=== PATIENT | female | born 1960 | race Caucasian/White ===

== ENCOUNTER 2017-09-29 18:21 | Emergency (ER) | payer OTHER | END 2017-09-29 20:05 | disposition home or self-care (01) | LOC: D.ER 18:21 | DX: R51 Headache (principal); J45.909 Unspecified asthma, uncomplicated; J44.9 Chronic obstructive pulmonary disease, unspecified; K21.9 Gastro-esophageal reflux disease without esophagitis ==

== ENCOUNTER 2018-05-10 10:23 | Emergency (ER) | payer OTHER ==
[~2018-05-10] VITALS: Ht 165.1 cm; Wt 86.4 kg
[2018-05-10 10:46] VITALS: Ht 165.1 cm; Wt 86.4 kg
[2018-05-10] MEDS ORDERED: ZESTORETIC 10/11 TAB PO (10:47)
[2018-05-10] MEDS ORDERED: ANTIVERT12.5 MG PO (12:05)
[2018-05-10] MEDS ORDERED: ATIVAN1 MG PO (12:05)
[2018-05-10 12:32] VITALS: BP 137/81
== END 2018-05-10 12:35 | disposition home or self-care (01) ==
LOC: D.ER 10:23
DX: R42 Dizziness and giddiness (principal); I10 Essential (primary) hypertension; J44.9 Chronic obstructive pulmonary disease, unspecified; F17.200 Nicotine dependence, unspecified, uncomplicated

== ENCOUNTER 2018-07-01 16:18 | Emergency (ER) | payer OTHER ==
[~2018-07-01] VITALS: Ht 165.1 cm; Wt 83.2 kg
[~2018-07-01 16:18] MED LIST: ANTIVERT12.5 MG PO; ATIVAN1 MG PO; ZESTORETIC 10/11 TAB PO
[2018-07-01 16:22] VITALS: Ht 165.1 cm; Wt 83.2 kg
[2018-07-01] MEDS ORDERED: OMEPRAZOLE20 M1 PO (16:24)
[2018-07-01 17:14] LABS: BASOPHILS 0.3 % (0-2); HEMATOCRIT 45.2 % (36.0-48.0); HEMOGLOBIN 15.9 g/dL (12-16); IMMATURE GRANULOCYTES 0.2 % (0-5); LYMPHOCYTES 21.8 % (15-50); MCH 31.2 pg (26.0-34.0); MCHC 35.2 g/dL (31.0-37.0); MCV 88.8 fL (80.0-100.0); MEAN PLATELET VOLUME 10.8 fL (7.4-10.4); MONOCYTES 6.5 % (2-11); NEUTROPHILS 70.2 % (40-80); PLATELET COUNT 262 10x3/uL (130-400); RBC 5.09 10x6/uL (4.00-5.40); RDW 12.3 % (11.5-14.5); WBC 11.6 10x3/uL (4.8-10.8)
[2018-07-01 17:36] LABS: ALBUMIN 3.6 g/dL (3.4-5.0); ALKALINE PHOSPHATASE 96 U/L (46-116); ALT (SGPT) 18 U/L (10-68); BILIRUBIN - TOTAL 0.46 mg/dL (0.2-1.3); CALC OSMOLALITY 272 mosm/kg (275-300); CARBON DIOXIDE 27.8 mmol/L (21.0-32.0); CHLORIDE - SERUM 103 mmol/L (98-107); CREATININE - SERUM 0.9 mg/dL (0.6-1.3); GLUCOSE 125 mg/dL (74-106); POTASSIUM - SERUM 3.7 mmol/L (3.5-5.1); PROTEIN - SERUM 7.7 g/dL (6.4-8.2); SODIUM 137 mmol/L (136-145); UREA NITROGEN 6 mg/dL (7-18); eGFR NON AFRICAN AMERICAN 68 mL/min (90-120)
[2018-07-01 17:51] LABS: CKMB 2.6 U/L (0.0-3.6); CREATINE KINASE 87 UL (21-215); TROPONIN-I < 0.017 ng/mL (0.000-0.060)
[2018-07-01] MEDS ORDERED: PRINZIDE 20/12.1 TA1 PO (19:03)
[2018-07-01 19:59] VITALS: BP 145/85
== END 2018-07-01 19:59 | disposition home or self-care (01) ==
LOC: D.ER 16:18
PROVIDERS: Emergency Medicine
DX: I10 Essential (primary) hypertension (principal); F41.9 Anxiety disorder, unspecified; F43.9 Reaction to severe stress, unspecified

== ENCOUNTER 2018-09-06 18:05 | Emergency (ER) | payer OTHER ==
[~2018-09-06] VITALS: Ht 165.1 cm; Wt 82.7 kg
[~2018-09-06 18:05] MED LIST changes: +OMEPRAZOLE20 M1 PO; +PRINZIDE 20/12.1 TA1 PO
[2018-09-06 18:30] VITALS: Ht 165.1 cm; Wt 82.7 kg
[2018-09-06] MEDS ORDERED: TORADOL10 MG PO (20:16)
[2018-09-06 22:30] VITALS: BP 117/80
== END 2018-09-06 20:35 | disposition home or self-care (01) ==
LOC: D.ER 18:05
DX: M54.2 Cervicalgia (principal); M54.6 Pain in thoracic spine; R51 Headache; I10 Essential (primary) hypertension; F17.200 Nicotine dependence, unspecified, uncomplicated; V43.62XA Car passenger injured in collision with other type car in traffic accident, initial encounter; Y93.89 Activity, other specified; Y92.410 Unspecified street and highway as the place of occurrence of the external cause

== ENCOUNTER 2019-12-25 15:47 | Emergency (ER) | payer OTHER ==
[~2019-12-25] VITALS: Ht 165.1 cm; Wt 84.1 kg
[~2019-12-25 15:47] MED LIST changes: +TORADOL10 MG PO
[2019-12-25 15:54] VITALS: Ht 165.1 cm; Wt 84.1 kg
[2019-12-25] MEDS ORDERED: OMNICEF300 MG PO (15:58)
[2019-12-25 16:36] LABS: BASOPHILS 0.5 % (0-2); HEMATOCRIT 46.5 % (36.0-48.0); HEMOGLOBIN 15.7 g/dL (12-16); IMMATURE GRANULOCYTES 0.4 % (0-5); LYMPHOCYTES 26.9 % (15-50); MCH 31.3 pg (26.0-34.0); MCHC 33.8 g/dL (31.0-37.0); MCV 92.6 fL (80.0-100.0); MEAN PLATELET VOLUME 9.8 fL (7.4-10.4); MONOCYTES 11.4 % (2-11); NEUTROPHILS 57.8 % (40-80); PLATELET COUNT 275 10x3/uL (130-400); RBC 5.02 10x6/uL (4.00-5.40); RDW 12.6 % (11.5-14.5); WBC 13.5 10x3/uL (4.8-10.8)
[2019-12-25 16:49] LABS: CALC OSMOLALITY 280 mosm/kg (275-300); CALCIUM 8.8 mg/dL (8.5-10.1); CARBON DIOXIDE 27.9 mmol/L (21.0-32.0); CHLORIDE - SERUM 106 mmol/L (98-107); CREATININE - SERUM 0.8 mg/dL (0.6-1.3); GLUCOSE 80 mg/dL (74-106); POTASSIUM - SERUM 3.9 mmol/L (3.5-5.1); SODIUM 142 mmol/L (136-145); UREA NITROGEN 10 mg/dL (7-18); eGFR NON AFRICAN AMERICAN 77 mL/min (90-120)
[2019-12-25 16:57] LABS: ALKALINE PHOSPHATASE 91 U/L (30-120); ALT (SGPT) 17 U/L (10-68); BILIRUBIN - TOTAL 0.35 mg/dL (0.2-1.3); PROTEIN - SERUM 7.2 g/dL (6.4-8.2)
[2019-12-25 17:01] LABS: TROPONIN-I < 0.017 ng/mL (0.000-0.060)
[2019-12-25 17:25] LABS: APPEARANCE CLEAR (CLEAR); BILIRUBIN NEGATIVE (NEGATIVE); COLOR YELLOW (YELLOW); GLUCOSE NEGATIVE (NEGATIVE); KETONE NEGATIVE (NEGATIVE); NITRITE NEGATIVE (NEGATIVE); PROTEIN NEGATIVE (NEGATIVE); UROBILINOGEN NORMAL (NORMAL)
[2019-12-25] MEDS ORDERED: LEVOFLOXACIN500 MG PO (18:06)
[2019-12-25 18:07] VITALS: BP 145/71
== END 2019-12-25 18:13 | disposition home or self-care (01) ==
LOC: D.ER 15:47
PROVIDERS: Family Medicine
DX: H66.91 Otitis media, unspecified, right ear (principal); R42 Dizziness and giddiness; I10 Essential (primary) hypertension; Z72.0 Tobacco use

== ENCOUNTER 2020-04-07 16:29 | Emergency (ER) | payer OTHER ==
[~2020-04-07] VITALS: Ht 165.1 cm; Wt 82.7 kg
[~2020-04-07 16:29] MED LIST changes: +LEVOFLOXACIN500 MG PO; +OMNICEF300 MG PO
[2020-04-07 17:27] VITALS: BP 140/89; Ht 165.1 cm; Wt 82.7 kg
[2020-04-07] MEDS ORDERED: ULTRAM50 MG PO (18:52)
== END 2020-04-07 19:10 | disposition home or self-care (01) ==
LOC: D.ER 16:29
DX: S50.11XA Contusion of right forearm, initial encounter (principal); S63.501A Unspecified sprain of right wrist, initial encounter; I10 Essential (primary) hypertension; Z72.0 Tobacco use; W19.XXXA Unspecified fall, initial encounter; Y93.K1 Activity, walking an animal; Y92.9 Unspecified place or not applicable

== ENCOUNTER 2020-06-09 22:37 | Emergency (ER) | payer OTHER ==
[~2020-06-09] VITALS: Ht 165.1 cm; Wt 85.5 kg
[~2020-06-09 22:37] MED LIST changes: +ULTRAM50 MG PO
[2020-06-09 22:38] VITALS: Ht 165.1 cm; Wt 85.5 kg
[2020-06-09 23:13] LABS: BASOPHILS 0.4 % (0-2); EOSINOPHILS 2.6 % (0-7); HEMATOCRIT 50.6 % (36.0-48.0); IMMATURE GRANULOCYTES 0.2 % (0-5); LYMPHOCYTES 25.6 % (15-50); MCHC 33.6 g/dL (31.0-37.0); MCV 92.3 fL (80.0-100.0); MEAN PLATELET VOLUME 10.3 fL (7.4-10.4); MONOCYTES 7.6 % (2-11); NEUTROPHILS 63.6 % (40-80); PLATELET COUNT 261 10x3/uL (130-400); RBC 5.48 10x6/uL (4.00-5.40); RDW 12.4 % (11.5-14.5); WBC 12.5 10x3/uL (4.8-10.8)
[2020-06-09 23:20] LABS: CALC OSMOLALITY 279 mosm/kg (275-300); CALCIUM 9.3 mg/dL (8.5-10.1); CARBON DIOXIDE 28.9 mmol/L (21.0-32.0); CHLORIDE - SERUM 101 mmol/L (98-107); CREATININE - SERUM 1.2 mg/dL (0.6-1.3); SODIUM 138 mmol/L (136-145); UREA NITROGEN 12 mg/dL (7-18); eGFR NON AFRICAN AMERICAN 48 mL/min (90-120)
[2020-06-09 23:29] LABS: GLUCOSE 171 mg/dL (74-106)
[2020-06-09 23:34] LABS: ALBUMIN 3.9 g/dL (3.4-5.0); ALKALINE PHOSPHATASE 113 U/L (30-120); ALT (SGPT) 32 U/L (10-68); BILIRUBIN - TOTAL 0.36 mg/dL (0.2-1.3); PROTEIN - SERUM 8.3 g/dL (6.4-8.2); THYROID STIMULATING HORMONE 16.25 uIU/mL (0.36-3.74); TROPONIN-I < 0.017 ng/mL (0.000-0.060)
[2020-06-10 00:18] VITALS: BP 142/80
== END 2020-06-10 00:18 | disposition home or self-care (01) ==
LOC: D.ER 22:37
PROVIDERS: Family Medicine
DX: T18.128A Food in esophagus causing other injury, initial encounter (principal); I10 Essential (primary) hypertension; Z72.0 Tobacco use; X58.XXXA Exposure to other specified factors, initial encounter

== ENCOUNTER 2020-08-15 11:22 | Emergency (ER) | payer OTHER, MEDICAID ==
[~2020-08-15] VITALS: Ht 165.1 cm; Wt 83.6 kg
[2020-08-15 11:35] VITALS: Ht 165.1 cm; Wt 83.6 kg
[2020-08-15] MEDS ORDERED: DICLOFENAC SODI50 MG PO (12:11)
[2020-08-15] MEDS ORDERED: PREDNISONE20 MG PO (12:11)
[2020-08-15] MEDS ORDERED: BACLOFEN10 MG PO (12:11)
[2020-08-15 12:47] VITALS: BP 126/86
== END 2020-08-15 12:47 | disposition home or self-care (01) ==
LOC: D.ER 11:22
DX: M79.604 Pain in right leg (principal); M54.16 Radiculopathy, lumbar region; M51.36 Other intervertebral disc degeneration, lumbar region; M54.5 Low back pain; I10 Essential (primary) hypertension; J44.9 Chronic obstructive pulmonary disease, unspecified; K21.9 Gastro-esophageal reflux disease without esophagitis